=== PATIENT | male | born 1960 ===

== ENCOUNTER 2022-04-16 15:53 | Outpatient (RCR) | payer BC | END 2022-04-22 | LOC: PT 15:53 | PROVIDERS: ATTEND Specialist | DX: M77.8 Other enthesopathies, not elsewhere classified (principal) ==

== ENCOUNTER 2022-05-08 17:00 | Outpatient (RCR) | payer BC | END 2022-05-23 | LOC: PT 17:00 | PROVIDERS: ATTEND Specialist | DX: M77.8 Other enthesopathies, not elsewhere classified (principal) ==